=== PATIENT | female | born 1985 | race Asian ===

== ENCOUNTER 2019-05-17 11:41 | Emergency (ER) | payer OTHER ==
[2019-05-17] MEDS ORDERED: HYDROmorphone 1 MG/ML CARPUJECT IM STA (12:38)
[2019-05-17] MEDS ORDERED: KETOROLAC 60 MG/2 ML VIAL IM STA (12:38)
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
--- NOTE | 2019-05-17 13:26 | XRAY Report ---
Reason: fall, clavicle pain Procedure Date: 05/17/2019 Accession Number: [id number] / [id number] Procedure: XR - Clavicle RT CPT Code: FULL RESULT: EXAM: RIGHT CLAVICLE RADIOGRAPHY EXAM DATE: 05/17/2019 01:13 PM. CLINICAL HISTORY: Fall, clavicle pain. COMPARISON: None. TECHNIQUE: 2 views. FINDINGS: Bones: Comminuted mid distal right clavicle fracture seen with cephalad displacement of the medial fragment up to 8 mm with a segmental mildly angulated fracture fragment largely along the inferior aspect of the medial portion of the distal fracture fragment. No significant angulation. Joints: The acromioclavicular and sternoclavicular joints are normal. No subluxation. Soft Tissues: Normal. No soft tissue swelling. IMPRESSION: 1. Comminuted mid distal right clavicle fracture. [facility]
[2019-05-17] MEDS ORDERED: oxyCODONE 5 MG TABLET PO STA (13:34)
[2019-05-17 13:48] VITALS: BP 142/90
== END 2019-05-17 14:06 | disposition home or self-care (01) ==
LOC: ED 11:41
DX: S42.031A Displaced fracture of lateral end of right clavicle, initial encounter for closed fracture (principal); S70.211A Abrasion, right hip, initial encounter; S30.811A Abrasion of abdominal wall, initial encounter; V00.831A Fall from motorized mobility scooter, initial encounter
CPT/HCPCS: 73000; 96372; 99283; 99284; A9270; J1170